=== PATIENT | male | born 1950 | race Caucasian/White ===

== ENCOUNTER 2016-09-27 10:30 | Inpatient (IN) | payer OTHER ==
[~2016-09-27] VITALS: Ht 175.3 cm; Wt 89.8 kg
[2016-09-27 12:28] LABS: PLATELET COUNT 237 x10^3mcL (130-400); RED CELL DISTRIBUTION WIDTH 12.9 % (11.5-14.5)
[2016-09-27 12:44] LABS: microscopic required? NO
[2016-09-27 12:46] LABS: CALCIUM 9.6 mg/dL (8.5-10.1); CARBON DIOXIDE 25.9 mmol/L (21-32); CHLORIDE SERUM 106 mmol/L (98-107); CREATININE SERUM 0.8 mg/dL (0.7-1.3); GFR1 > 60 mL/min; GLUCOSE SERUM 95 mg/dL (74-106); POTASSIUM SERUM 3.8 mmol/L (3.5-5.1); SODIUM SERUM 142 mmol/L (136-145)
[2016-09-27] MEDS ORDERED: VENTOLIN H0.09 MG/A1 (12:46)
[2016-09-27 12:51] LABS: ALBUMIN 3.9 g/dL (3.4-5.0); ALKALINE PHOSPHATASE 148 U/L (46-116); ALT/SGPT 60 U/L (16-63); AMYLASE 52 U/L (25-115); AST/SGOT 38 U/L (15-37); BILIRUBIN TOTAL 0.4 mg/dL (0.20-1.00); LIPASE 119 IU/L (73-393); TOTAL PROTEIN, SERUM 7.6 g/dL (6.4-8.2)
[2016-09-27 12:57] LABS: CHOLESTEROL/HDL RATIO 3.6
[2016-09-27 13:05] LABS: FREE T4 1.14 ng/dL (0.76-1.46); FREE THYROXINE INDEX 3.1 ug/dL (1.4-4.5); T4(THYROXINE) 10.1 ug/dL (4.7-13.3)
[2016-09-27 13:30] VITALS: BP 136/78
[2016-09-27 13:36] VITALS: Ht 175.3 cm; Wt 89.8 kg
[2016-09-27 13:40] LABS: UA SPECIFIC GRAVITY 1.025 (1.005-1.035); urine erythrocyte NEGATIVE (NEGATIVE)
[2016-09-27 13:44] LABS: AMPHETAMINE QUAL UR NONE DETECTED (NEG <=1000)
[2016-09-27 14:15] LABS: T3 TOTAL 0.95 ng/mL
[2016-09-27 18:31] VITALS: BP 133/92
[2016-09-27 21:58] VITALS: BP 106/73
[2016-09-28 06:02] VITALS: BP 136/79
[2016-09-28 08:45] LABS: BASOPHIL % 0.7 % (0-2); PLATELET COUNT 238 x10^3mcL (130-400)
[2016-09-28 08:59] LABS: CALCIUM 8.7 mg/dL (8.5-10.1); CARBON DIOXIDE 25.1 mmol/L (21-32); CHLORIDE SERUM 108 mmol/L (98-107); CREATININE SERUM 0.8 mg/dL (0.7-1.3); GFR1 > 60 mL/min; GLUCOSE SERUM 130 mg/dL (74-106); PHOSPHOROUS 3.2 mg/dL (2.5-4.9); POTASSIUM SERUM 3.9 mmol/L (3.5-5.1); SODIUM SERUM 142 mmol/L (136-145)
[2016-09-28 09:20] VITALS: BP 122/84
[2016-09-28 18:22] VITALS: BP 139/88
[2016-09-28 21:24] VITALS: BP 143/83
[2016-09-29 05:48] VITALS: BP 112/80
[2016-09-29 05:58] LABS: BASOPHIL % 0.9 % (0-2); PLATELET COUNT 268 x10^3mcL (130-400)
[2016-09-29 06:11] LABS: CALCIUM 8.5 mg/dL (8.5-10.1); CARBON DIOXIDE 24.6 mmol/L (21-32); CHLORIDE SERUM 109 mmol/L (98-107); CREATININE SERUM 0.8 mg/dL (0.7-1.3); GFR1 > 60 mL/min; GLUCOSE SERUM 97 mg/dL (74-106); PHOSPHOROUS 3.6 mg/dL (2.5-4.9); POTASSIUM SERUM 3.8 mmol/L (3.5-5.1); SODIUM SERUM 143 mmol/L (136-145)
[2016-09-29 09:20] VITALS: BP 124/76
[2016-09-29 17:55] VITALS: BP 129/77
[2016-09-29 21:10] VITALS: BP 114/69
[2016-09-30 05:44] VITALS: BP 108/53
[2016-09-30 06:46] LABS: CALCIUM 8.5 mg/dL (8.5-10.1); CARBON DIOXIDE 23.5 mmol/L (21-32); CHLORIDE SERUM 109 mmol/L (98-107); CREATININE SERUM 0.7 mg/dL (0.7-1.3); GFR1 > 60 mL/min; GLUCOSE SERUM 88 mg/dL (74-106); POTASSIUM SERUM 3.6 mmol/L (3.5-5.1); SODIUM SERUM 142 mmol/L (136-145)
[2016-09-30 09:47] VITALS: BP 135/84
[2016-09-30 10:28] VITALS: BP 135/84
== END 2016-09-30 13:30 | disposition left against medical advice (07) | DRG 301 ==
LOC: ED 10:30 → DU 12:06 → MU 12:06 → DU 13:17 → MU 09-28 06:48
PROVIDERS: Emergency Medicine; Family Medicine; ADMIT Family Medicine
DX: I82.4Z2 Acute embolism and thrombosis of unspecified deep veins of left distal lower extremity (principal); I10 Essential (primary) hypertension; J45.909 Unspecified asthma, uncomplicated; E03.9 Hypothyroidism, unspecified; E78.5 Hyperlipidemia, unspecified; Z86.718 Personal history of other venous thrombosis and embolism; Z86.711 Personal history of pulmonary embolism; Z59.0 Homelessness; Z68.29 Body mass index [BMI] 29.0-29.9, adult; Z53.20 Procedure and treatment not carried out because of patient's decision for unspecified reasons
CPT/HCPCS: 80307; 83880; 84439; 85378; G0480; J1644; J7030; Q0092

== ENCOUNTER 2016-12-09 20:00 | Emergency (ER) | payer OTHER ==
[~2016-12-09 20:00] MED LIST: VENTOLIN H0.09 MG/A1
[2016-12-09 21:00] LABS: microscopic required? NO
[2016-12-09 21:02] LABS: PLATELET COUNT 257 x10^3mcL (130-400); RED CELL DISTRIBUTION WIDTH 13.6 % (11.5-14.5)
[2016-12-09 21:05] LABS: CALCIUM 8.8 mg/dL (8.5-10.1); CARBON DIOXIDE 23.6 mmol/L (21-32); CHLORIDE SERUM 109 mmol/L (98-107); CREATININE SERUM 0.8 mg/dL (0.7-1.3); GFR1 > 60 mL/min; GLUCOSE SERUM 124 mg/dL (74-106); POTASSIUM SERUM 3.8 mmol/L (3.5-5.1); SODIUM SERUM 141 mmol/L (136-145)
[2016-12-09 21:10] LABS: UA SPECIFIC GRAVITY 1.025 (1.005-1.035); urine erythrocyte NEGATIVE (NEGATIVE)
[2016-12-09 21:15] LABS: ALBUMIN 3.4 g/dL (3.4-5.0); ALKALINE PHOSPHATASE 104 U/L (46-116); ALT/SGPT 48 U/L (16-63); AST/SGOT 32 U/L (15-37); BILIRUBIN TOTAL 0.2 mg/dL (0.20-1.00); C REACTIVE PROTEIN 0.9 mg/dL (<=0.9); TOTAL PROTEIN, SERUM 6.5 g/dL (6.4-8.2)
[2016-12-09 21:26] LABS: T3 TOTAL 1.3 ng/mL
[2016-12-09 21:30] LABS: CK-MB 3.7 ng/mL (0-3.6)
[2016-12-09 21:36] LABS: BAND NEUTROPHIL 0 % (0-10); BASOPHIL 0 % (0-2); MONOCYTE 5 % (0-7); SEGMENTED NEUTROPHILS 52 % (37-75)
[2016-12-09 21:40] LABS: FREE T4 0.86 ng/dL (0.76-1.46); FREE THYROXINE INDEX 2.8 ug/dL (1.4-4.5); T4(THYROXINE) 8.9 ug/dL (4.7-13.3)
[2016-12-09 22:15] LABS: ERYTHROCYTE SED RATE 13 mm/hr (0-20)
[2016-12-09 22:33] VITALS: BP 115/73
== END 2016-12-09 22:34 | disposition home or self-care (01) ==
LOC: ED 20:00
PROVIDERS: Specialist
DX: L03.116 Cellulitis of left lower limb (principal); I82.4Z2 Acute embolism and thrombosis of unspecified deep veins of left distal lower extremity; J45.909 Unspecified asthma, uncomplicated
CPT/HCPCS: 83880; 84439; J3490; Q0092